=== PATIENT | female | born 1990 | race Caucasian/White ===

== ENCOUNTER 2020-04-15 21:39 | Inpatient (IN) | payer BC, OTHER ==
[2020-04-15 22:29] VITALS: BMI 52.3
[2020-04-15] MEDS ORDERED: hydrALAZINE 20 MG/ML VIAL SLOW IVP PRN ×2 (22:29→22:59)
[2020-04-15] MEDS ORDERED: Ondansetron PF 4 MG/2 ML Vial IVP PRN ×2 (22:59→23:08)
[2020-04-15] MEDS ORDERED: MORPHINE 5 MG/10 ML PF VIAL ONE (22:59)
[2020-04-15] MEDS ORDERED: Bicitra 30 ML UDCUP PO SCH (23:00)
[2020-04-15] MEDS ORDERED: Ketorolac Tromethamine 30 MG/ML VIAL ONE (23:00)
[2020-04-15] MEDS ORDERED: PHENYLEPHRINE-NS 100 MCG/ML 10 ML SYRINGE ONE ×2 (23:00→23:49)
[2020-04-15] MEDS ORDERED: Clindamycin/D5W 900 MG in Premix Bag 1 BAG IVPB SCH (23:00)
[2020-04-15] MEDS ORDERED: Oxytocin 10 UNITS/ML VIAL ONE (23:00)
[2020-04-15] MEDS ORDERED: Ondansetron PF 4 MG/2 ML Vial ONE (23:00)
[2020-04-15] MEDS ORDERED: EPHEDRINE 25 MG/5 ML SYRINGE ONE (23:00)
[2020-04-15] MEDS ORDERED: Lactated Ringer's 1,000 ML IV SCH (23:00)
[2020-04-15] MEDS ORDERED: Gentamicin 120 MG/100 ML BAG IVPB SCH (23:00)
[2020-04-15] MEDS ORDERED: Promethazine HCl 25 MG SUPP PR PRN (23:08)
[2020-04-15] MEDS ORDERED: Ondansetron HCl/PF 4 MG/2 ML Vial IVP PRN (23:08)
[2020-04-15] MEDS ORDERED: Naloxone HCl 0.4 mg/ml Vial IVP PRN ×2 (23:08)
[2020-04-15] MEDS ORDERED: diphenhydrAMINE 50 MG/ML VIAL IVP PRN (23:08)
[2020-04-15] MEDS ORDERED: Ketorolac Tromethamine 30 MG/ML VIAL IVP PRN (23:08)
[2020-04-15] MEDS ORDERED: Promethazine HCl 25 MG/ML VIAL IM PRN (23:08)
[2020-04-15] MEDS ORDERED: Naloxone HCl 0.4 mg/ml Vial IV PRN (23:08)
[2020-04-15 23:15] LABS: Hemoglobin 14.4 g/dL (12.0-16.0); Mean Corpuscular HGB CONC 34.2 g/dL (32.0-36.0); Mean Corpuscular Hemoglobin 31.8 pg (27.0-31.0); Mean Corpuscular Volume 93.1 fL (78.0-98.0); Platelet Count 205 thou/uL (130-400); Red Blood Cell (RBC) Count 4.51 mill/uL (4.20-5.40); White Blood Cell (WBC) Count 18.8 thou/uL (4.8-10.8)
[2020-04-15] MEDS ORDERED: Communication Order-Pharmacy FS SCH (23:15)
[2020-04-15 23:51] LABS: Syphilis Antibody Nonreactive (Nonreactive); Syphilis Antibody Index 0.07 S/CO (<1.00 Non-Reactive)
[2020-04-15 23:57] LABS: Actual Bicarbonate (HCO3a) 21.3 mEq/L (22-28); Base Excess (BEa) -8.2 mEq/L (-2.0 to +3.0)
[2020-04-15 23:59] LABS: Actual Bicarbonate (HCO3v) 21 mEq/L (22-28); Base Excess -6.4 mEq/L (-2.0 to +3.0)
[2020-04-16 00:01] LABS: pH (Cord, venous) 7.24 (7.32-7.43)
[2020-04-16] MEDS ORDERED: Ketamine 50 MG/ML (10ML VIAL) ONE (00:25)
[2020-04-16] MEDS ORDERED: Ondansetron PF 4 MG/2 ML Vial ONE (00:35)
[2020-04-16] MEDS ORDERED: Glycopyrrolate 0.2 MG/ML 5 ML SYRINGE ONE (00:36)
[2020-04-16] MEDS ORDERED: NS / Oxytocin 40 units/1000ml 1,000 ML ONE (01:14)
[2020-04-16] MEDS: Acetaminophen 650 MG Suppository PR SCH ×2 (01:51→05:05)
--- NOTE | 2020-04-16 01:54 | OP ---
DATE OF PROCEDURE: 04/15/2020 PREOPERATIVE DIAGNOSES: 1. Intrauterine at 37 weeks and a day. 2. No care. 3. Previous section x1. 4. Non-reassuring heart tones of unknown duration. 5. Spontaneous rupture of membranes. 6. Thick meconium. POSTOPERATIVE DIAGNOSES: 1. Intrauterine at 37 weeks and a day. 2. No care. 3. Previous section x1. 4. Non-reassuring heart tones of unknown duration. 5. Spontaneous rupture of membranes. 6. Thick meconium. PROCEDURE PERFORMED: Repeat low transverse section. SERVICE AND REPAIR SUPERVISOR: Eleuterio Dumont DO ANESTHESIA: Spinal. ESTIMATED BLOOD LOSS: 800 mL. QUANTITATIVE BLOOD LOSS: Unavailable at the time of dictation. FINDINGS: Female in vertex presentation surrounded with bright green thick meconium, delivered at 2335 hours on 04/15/2020. Apgars were 8 and 9, weight unavailable at time of dictation. DESCRIPTION OF PROCEDURE: Ms. Connie Whyte is a 29-year-old female who presented to Labor and Delivery with concerns of rupture of membranes. Upon presentation, the patient was noted to be grossly ruptured with thick meconium and a heart tracing immediately showed repetitive late decelerations with very minimal contractions. Preparations were quickly made to take the patient back to the operating room for a repeat . There she was given spinal anesthesia and placed in dorsal supine position with a leftward tilt. The patient was prepared and draped in normal sterile fashion. After testing the effectiveness of the spinal anesthesia and noted to be adequate, a Pfannenstiel skin incision was made and carried down to the level of fascia. Fascia was incised and extended laterally with Nixon scissors. Superiorly fascia was dissected off the underlying rectus muscles both bluntly and sharply until we were high enough to get access into the peritoneal cavity. The peritoneal cavity was noted to have some filmy adhesions between the uterus and the omentum and the anterior abdominal wall. These adhesions were easily taken down and the peritoneal defect was extended bluntly. The Francis O retractor was then inserted giving adequate exposure to the lower uterine segment. A hysterotomy was performed in the lower uterine segment in a transverse fashion. was delivered in vertex presentation to sterile field, immediately noted upon hysterotomy was a thick pea soup bright green colored meconium. Infant was bulb suctioned. Cord was clamped and the was handed off to the waiting attendants. Placenta was delivered spontaneously. It was noted to be darkly stained with meconium. The placenta was manually extracted. Inspection of the uterine cavity revealed a small amount remaining membrane that was removed. The hysterotomy was then closed with #1 Monocryl in a running locked fashion followed by a 2nd imbricating layer. Good hemostasis was noted and the peritoneal cavity was then irrigated and the hysterotomy was noted to have good hemostasis. The Francis O retractor was removed and the peritoneum was then closed with 2-0 chromic in a running fashion. The fascia was closed with 0 Vicryl in a running fashion. The subcutaneous fat was closed with 2-0 plain gut in 2 layers in a running fashion. The skin was closed with 4-0 Monocryl in a running fashion. At this point, the incision was then covered and the patient was taken to the recovery room in stable condition. Job ID: [id number]
--- NOTE | 2020-04-16 02:01 | HP ---
HISTORY OF PRESENT ILLNESS: Patient is a 29-year-old G2, P1 female, with an intrauterine stated at 37 weeks and a day with no care. Patient reports she has had one visit. Patient presented to Labor and Delivery with complaints of rupture of membranes. She denies uterine contractions or vaginal bleeding. She denies fever, headache, chest pain, or shortness of breath. She denies recent illness, nausea, vomiting, diarrhea, constipation, any new rashes, urinary urgency or frequency. PAST MEDICAL HISTORY: Negative. PAST SURGICAL HISTORY: One primary , tonsillectomy. ALLERGIES: AMOXICILLIN, UNKNOWN REACTION. MEDICATIONS: None. OB LABS: Unavailable. REVIEW OF SYSTEMS: Per HPI. PHYSICAL EXAMINATION: VITAL SIGNS: Blood pressure 122/90, respiratory rate of 18, pulse of 108, and temperature 99.0. GENERAL: She appears to be in no acute distress. She is alert and oriented, cooperative and pleasant to interact with. HEAD: Normocephalic and atraumatic. LUNGS: Clear to auscultation bilaterally. HEART: Has regular rate and rhythm. ABDOMEN: Gravid, soft, nontender. EXTREMITIES: Nontender and nonedematous. heart tracing upon placement shows a fetus with repetitive late decelerations coming down into the 140s and rising up into the 170s with some periods of marked variability, contractions about every 2 minutes, again unfelt by the patient. Upon identification patient was given 15 L of oxygen placed on her left lateral side, and placed IV for fluid bolusing to resuscitate this baby while preparations for emergency are being made. Of note, the ORs were no fully cleaned and prepped and supplies for sterile scrub were not readily available delaying the case some. Appropriate staff were notified and once Anesthesia saw the patient, the patient was ready for the OR, she was transferred there. ASSESSMENT AND PLAN: Patient is a 29-year-old female, with an intrauterine stated at 37 weeks, presenting for rupture of membranes and being assessed of having a category III tracing with repetitive late decelerations of unknown duration and bright green meconium. Patient proceeded urgently towards . Please refer to the operative note for complete details. Job ID: [id number] MTDD
[2020-04-16 02:05] LABS: HBSAg Index 0.16 S/CO (0-0.99); HIV (1/2) Antibody/Antigen Non-Reactive (NonReactive); Hep B Surf Ag Non-Reactive S/CO (NonReactive)
[2020-04-16 02:44] LABS: Amphetamine Detected (NotDetected); Barbiturates Screen Not Detected (NotDetected); Benzodiazepine Screen Not Detected (NotDetected); Cocaine Metabolite Screen Not Detected (NotDetected); Medtox Control Line Valid? VALID (VALID); Medtox Reader # READER 4; Methadone Not Detected (NotDetected); Methamphetamine Detected (NotDetected); Opiate Screen Not Detected (NotDetected); Oxycodone Screen Not Detected (NotDetected); Phencyclidine (PCP) Not Detected (NotDetected); THC/Cannabinoid Screen Not Detected (NotDetected); Tricyclic Screen Not Detected (NotDetected)
[2020-04-16] MEDS ORDERED: Simethicone Chewable 80 MG TAB PO PRN (04:21)
[2020-04-16] MEDS ORDERED: Ondansetron PF 4 MG/2 ML Vial IVP PRN (04:21)
[2020-04-16] MEDS ORDERED: Lanolin Ointment 7 GM TUBE TOP PRN (04:21)
[2020-04-16] MEDS ORDERED: Methylergonovine 0.2 MG TAB PO PRN (04:21)
[2020-04-16] MEDS ORDERED: diphenhydrAMINE 25 MG CAP PO PRN (04:21)
[2020-04-16] MEDS ORDERED: Promethazine HCl 25 MG/ML VIAL IM PRN ×2 (04:21→06:39)
[2020-04-16] MEDS ORDERED: Methylergonovine 0.2 MG/ML VIAL IM PRN (04:21)
[2020-04-16] MEDS ORDERED: Misoprostol 200 MCG TAB PR PRN (04:21)
[2020-04-16] MEDS ORDERED: hydrALAZINE 20 MG/ML VIAL SLOW IVP PRN (04:21)
[2020-04-16] MEDS ORDERED: Acetaminophen 325 MG TAB PO PRN (04:21)
[2020-04-16] MEDS ORDERED: NS / Oxytocin 40 units/1000ml 1,000 ML IV SCH (04:21)
[2020-04-16] MEDS ORDERED: Promethazine HCl 25 MG/ML VIAL SLOW IVP PRN (06:39)
--- NOTE | 2020-04-16 07:19 | PRG ---
DATE OF SERVICE: 04/16/2020 postoperative note SUBJECTIVE: The patient is postop day 1, status post a repeat lower transverse section done urgently for non-reassuring heart tones upon presentation and spontaneous rupture of membranes with thick meconium and history of previous x1. Today, the patient reports she is tolerating liquids, having good pain control. Fitzpatrick catheter still in place. OBJECTIVE: VITAL SIGNS: This morning, blood pressure 119/67, temperature 98.7, pulse of 86, respiratory rate of 16. GENERAL: She appears to be in no acute distress. She is alert, oriented, cooperative, pleasant to interact with. HEENT: Head is normocephalic, atraumatic. ABDOMEN: Incision is clean. It is bandaged and is clean. EXTREMITIES: Nontender, nonedematous. Drug screen is positive for methamphetamines. RPR, hep B, and HIV are all negative. GBS and rubella are pending. Of note, blood gas 7.15, base excess of -8. ASSESSMENT AND PLAN: The patient is a 29-year-old female, postop day 1, status post a repeat for non-reassuring heart tones upon presentation, category three. She has a screen positive for methamphetamines for which she denies, but does state that she is around people that she knows does methamphetamines. Anticipate CPS involvement and testing of the baby. The patient has been made aware. We will continue in-house care with discharge in the next 2-3 days. Job ID: [id number]
[2020-04-16] MEDS ORDERED: Adacel (T-DAP) 0.5 ML SYRINGE IM ONE (09:00)
[2020-04-16] MEDS: Docusate Calcium (SURFAK) 240 MG CAP PO SCH ×2 (09:12→21:19)
[2020-04-16] MEDS: Prenatal Vitamin 1 TAB PO SCH (09:12)
[2020-04-16] MEDS ORDERED: HYDROcodone/Acetaminophen 5/325 mg Tablet PO PRN ×2 (11:15)
[2020-04-16 14:55] LABS: SARS-CoV-2 MS2 Positive; SARS-CoV-2 N Gene Negative; SARS-CoV-2 S Gene Negative; SARS-CoV-2 by NAA Not Detected (NotDetected); SARS-CoV-2 orf1ab Negative
[2020-04-16] MEDS ORDERED: Sodium Chloride 0.9% 10 ML ONE (14:59)
[2020-04-16] MEDS: Ibuprofen 800 MG TAB PO SCH (21:19)
[2020-04-16 23:54] VITALS: TEMP 98.1
[2020-04-17] MEDS: Ibuprofen 800 MG TAB PO SCH ×2 (05:24→14:28)
[2020-04-17 05:51] LABS: Hemoglobin 10.5 g/dL (12.0-16.0); Mean Corpuscular HGB CONC 33.2 g/dL (32.0-36.0); Mean Corpuscular Hemoglobin 31.4 pg (27.0-31.0); Mean Corpuscular Volume 94.7 fL (78.0-98.0); Mean Platelet Volume 7.3 fL (7.4-10.4); Platelet Count 200 thou/uL (130-400); RBC Distribution Width 12.1 % (11.5-14.5); Red Blood Cell (RBC) Count 3.33 mill/uL (4.20-5.40); White Blood Cell (WBC) Count 13.6 thou/uL (4.8-10.8)
[2020-04-17] MEDS ORDERED: Ibuprofen 800 MG TAB PO SCH (06:00)
--- NOTE | 2020-04-17 06:05 | PDOC.PP ---
Post Progress Note Post Day #: 2 Subjective: Doing well PO intake tolerated: yes Flatus: yes Ambulation: yes Vital Signs (12 hours) Temp Pulse Resp BP 04/17/20 05:20 98.1 F 75 16 122/73 04/16/20 23:45 98.1 F 72 16 106/65 04/16/20 21:20 98.2 F 89 16 138/72 Weight Weight 334 lb - Physical Examination General: NAD Respiratory: non-labored breathing Abdominal: no distention, appropriately TTP Extremities: negative homans (B) Skin: CS incision dry & intact (sutured), no rash Neurological: no gross focal deficits Psychiatric: A&Ox3, normal affect Result Diagrams: 04/17/20 05:34 Additional Labs: Post Labs Blood Type A POSITIVE 04/16/20 05:10 Hep Bs Antigen Non-Reactive S/CO (NonReactive) 04/15/20 23:03 (1) delivery delivered Code(s): O82 - ENCOUNTER FOR DELIVERY WITHOUT INDICATION Status: Acute (2) Methamphetamine use Code(s): F15.10 - OTHER STIMULANT ABUSE, UNCOMPLICATED Status: Acute - Assessment/Plan No care, now POD 2 from repeat CS. CPS to see today per protocol for pos UDS for meth and amphetamines. Otherwise well. Plan on DC home tomorrow
[2020-04-17] MEDS: Prenatal Vitamin 1 TAB PO SCH (08:26)
[2020-04-17] MEDS: Docusate Calcium (SURFAK) 240 MG CAP PO SCH (08:26)
[2020-04-17 11:49] VITALS: BP 123/67
== END 2020-04-17 16:00 | disposition home or self-care (01) | DRG 787 ==
LOC: L&D/OP 21:39 → L&D 23:02 → 3SW 04-16 03:41
PROVIDERS: ADMIT Obstetrics & Gynecology; ATTEND Obstetrics & Gynecology
PROC: 10D00Z1 Extraction of Products of Conception, Low, Open Approach (ICD-10-PCS; principal; 2020-04-15)
DX: O76 Abnormality in fetal heart rate and rhythm complicating labor and delivery (principal); O99.324 Drug use complicating childbirth; Z3A.37 37 weeks gestation of pregnancy; Z37.0 Single live birth; O34.211 Maternal care for low transverse scar from previous cesarean delivery; O77.0 Labor and delivery complicated by meconium in amniotic fluid; Z20.828 Contact with and (suspected) exposure to other viral communicable diseases; F15.90 Other stimulant use, unspecified, uncomplicated
CPT/HCPCS: 36415; 51702; 80306; 82805; 85027; 86762; 86780; 86850; 86870; 86900; 86901; 86905; 86922; 87340; 87389; 87635; 88307; 99285; J0690; J1580; J1885; J2274; J2405; J2590; J3490; U0003

== ENCOUNTER 2023-07-31 11:50 | Inpatient (IN) | payer BC, SELFPAY ==
[2023-07-31 13:27] LABS: #Monocytes 2.3 thou/uL (0.11-0.59); #Neutrophils 15.5 thou/uL (1.40-6.50); %Basophils 0.2 % (0.0-1.0); %Lymphocytes 6.4 % (21.0-51.0); %Monocytes 11.7 % (0.0-10.0); %Neutrophils 81.1 % (42.0-75.0); Hematocrit 42.3 % (36.0-47.0); Hemoglobin 14.2 g/dL (12.0-16.0); Mean Corpuscular HGB CONC 33.6 g/dL (32.0-36.0); Mean Corpuscular Hemoglobin 30.8 pg (27.0-31.0); Mean Corpuscular Volume 91.8 fl (78.0-98.0); Platelet Count 204 10x3/uL (130-400); RBC Distribution Width 11.9 % (11.5-14.5); Red Blood Cell (RBC) Count 4.61 mill/uL (4.20-5.40); White Blood Cell (WBC) Count 19.2 10x3/uL (4.8-10.8)
[2023-07-31] MEDS ORDERED: Ondansetron PF 4 MG/2 ML Vial ONE (13:32)
[2023-07-31] MEDS ORDERED: Ketorolac Tromethamine 30 MG/ML VIAL ONE (13:32)
[2023-07-31 13:40] LABS: BHCG - Serum Negative (NEGATIVE); Pregs Control Background? CLEAR/WHITE (CLR/WHITE); Pregs Control Bar Appear? YES (CONTROL BAR)
[2023-07-31 13:58] LABS: ALT (SGPT) 22 U/L (8-55); AST (SGOT) 26 U/L (5-34); Albumin 3.8 g/dL (3.5-5.0); Alkaline Phosphatase 88 U/L (40-110); Anion Gap 15 mmol/L (10-20); BUN (Urea Nitrogen) 7 mg/dL (7.0-18.7); Bilirubin, Total 0.9 mg/dL (0.2-1.2); Calc. Creatinine Clearance 0 mL/min (70-130); Calcium 9.8 mg/dL (7.8-10.44); Carbon Dioxide 23 mmol/L (22-29); Chloride 97 mmol/L (98-107); Estimated GFR 67; Globulin 4.7 g/dL (2.4-3.5); Lipase Less than 4 U/L (8-78); Potassium 3.7 mmol/L (3.5-5.1); Protein, Total 8.5 g/dL (6.0-8.3); Sodium 131 mmol/L (136-145)
[2023-07-31 13:59] LABS: Troponin I Less than 0.010 ng/mL (< 0.028)
[2023-07-31 14:00] LABS: Glucose 101 mg/dL (70-105)
[2023-07-31 15:32] LABS: Bacteria/HPF 4+ HPF (None Seen); Bilirubin Negative (Negative); Blood, Urine 1+ (Negative); CAUTI Indications for Culture Fever or rigors; Clarity Turbid (Clear); Glucose, Urine (Dipstick) Normal (Negative); Ketone, Urine Negative (Negative); Leukocyte 500 Leu/uL (Negative); Nitrite 2+ (Negative); Protein, Urine (Dipstick) 50 mg/dL (Neg-Trace); Specific Gravity, Urine 1.017 (1.002-1.036); Squamous Epithelial 0-3 HPF (0-3); WBC/HPF Greater than 50 HPF (0-3)
[2023-07-31 15:36] LABS: Urine Culture Reflex Yes Yes
[2023-07-31] MEDS ORDERED: Ondansetron PF 4 MG/2 ML Vial IVP PRN (17:03)
[2023-07-31] MEDS ORDERED: Ondansetron ODT 4 MG TAB PO PRN (17:03)
[2023-07-31] MEDS ORDERED: diphenhydrAMINE 12.5 MG/5 ML UDCUP PO PRN (17:08)
[2023-07-31] MEDS ORDERED: cefTRIAXone (ROCEPHIN) 2 GM VIAL ONE (17:22)
[2023-07-31] MEDS ORDERED: Sodium Chloride 0.9% 100 ML ONE (17:22)
[2023-07-31] MEDS: cefTRIAXone\\ROCEPHIN 2 GM in Sodium Chloride 0.9% 100 ML IVPB SCH (17:27)
[2023-07-31] MEDS ORDERED: HYDROcodone/Acetaminophen 5/325 mg Tablet ONE (20:20)
[2023-07-31] MEDS: HYDROcodone/Acetaminophen 5/325 mg Tablet PO PRN (20:21)
[2023-07-31] MEDS: Saccharomyces boulardii 250 MG CAP PO SCH (21:22)
[2023-07-31] MEDS: Nicotine 14 MG PATCH TD SCH (21:42)
[2023-07-31] MEDS: Sodium Chloride 0.9% 1,000 ML IV SCH (23:43)
[2023-08-01] MEDS ORDERED: HYDROcodone/Acetaminophen 5/325 mg Tablet ONE ×2 (01:34→09:03)
[2023-08-01] MEDS: HYDROcodone/Acetaminophen 5/325 mg Tablet PO PRN ×3 (01:36→16:32)
[2023-08-01 03:42] LABS: #Monocytes 3.1 thou/uL (0.11-0.59); #Neutrophils 11.4 thou/uL (1.40-6.50); %Basophils 0.2 % (0.0-1.0); %Eosinophils 0.1 % (0.0-10.0); %Lymphocytes 12.6 % (21.0-51.0); %Monocytes 18.4 % (0.0-10.0); Hematocrit 33.4 % (36.0-47.0); Mean Corpuscular HGB CONC 33.5 g/dL (32.0-36.0); Mean Corpuscular Hemoglobin 30.2 pg (27.0-31.0); Mean Platelet Volume 9.3 fL (7.4-10.4); Platelet Count 161 10x3/uL (130-400); RBC Distribution Width 11.9 % (11.5-14.5); Red Blood Cell (RBC) Count 3.71 mill/uL (4.20-5.40); White Blood Cell (WBC) Count 16.8 10x3/uL (4.8-10.8)
[2023-08-01 03:50] LABS: Hemoglobin 11.2 g/dL (12.0-16.0)
[2023-08-01 04:10] LABS: Anion Gap 14 mmol/L (10-20); BUN (Urea Nitrogen) 8 mg/dL (7.0-18.7); Calc. Creatinine Clearance 0 mL/min (70-130); Calcium 8.4 mg/dL (7.8-10.44); Carbon Dioxide 21 mmol/L (22-29); Chloride 101 mmol/L (98-107); Estimated GFR 67; Glucose 105 mg/dL (70-105); Potassium 3.5 mmol/L (3.5-5.1); Sodium 132 mmol/L (136-145)
[2023-08-01] MEDS ORDERED: Ondansetron ODT 4 MG TAB ONE (09:59)
[2023-08-01 10:45] VITALS: BMI 49.4
[2023-08-01] MEDS: Sodium Chloride 0.9% 1,000 ML IV SCH ×4 (12:13→21:21)
[2023-08-01 12:46] LABS: Chlam.trachomatis by PCR,Urine Not Detected (NotDetected); GC N.gonorrhoeae PCR,UrineVOID Not Detected (NotDetected)
[2023-08-01] MEDS: cefTRIAXone\\ROCEPHIN 2 GM in Sodium Chloride 0.9% 100 ML IVPB SCH (16:24)
[2023-08-01] MEDS ORDERED: LevoFLOXacin 500 mg/D5W 500 MG in Premix 1 BAG IVPB SCH (16:45)
[2023-08-01] MEDS: Nicotine 14 MG PATCH TD SCH (16:50)
[2023-08-01] MEDS ORDERED: Potassium Chloride 20 MEQ TAB PO SCH (17:00)
[2023-08-01] MEDS ORDERED: FLU VACC QS2023-24(6MOS UP)/PF 60 MCG/0.5 ML SYRINGE IM ONE (18:00)
[2023-08-01] MEDS: Saccharomyces boulardii 250 MG CAP PO SCH (21:15)
[2023-08-02] MEDS: HYDROcodone/Acetaminophen 5/325 mg Tablet PO PRN (01:45)
[2023-08-02] MEDS: Sodium Chloride 0.9% 1,000 ML IV SCH ×2 (01:45→10:18)
[2023-08-02 04:24] LABS: #Eosinphils 0.1 thou/uL (0.0-0.7); #Monocytes 1.4 thou/uL (0.11-0.59); #Neutrophils 7.9 thou/uL (1.40-6.50); %Basophils 0.3 % (0.0-1.0); %Eosinophils 0.4 % (0.0-10.0); %Lymphocytes 18.8 % (21.0-51.0); %Monocytes 11.9 % (0.0-10.0); Hematocrit 32.6 % (36.0-47.0); Hemoglobin 10.8 g/dL (12.0-16.0); Mean Corpuscular HGB CONC 33.1 g/dL (32.0-36.0); Mean Corpuscular Hemoglobin 30.4 pg (27.0-31.0); Mean Corpuscular Volume 91.8 fl (78.0-98.0); Platelet Count 187 10x3/uL (130-400); RBC Distribution Width 12.2 % (11.5-14.5); Red Blood Cell (RBC) Count 3.55 mill/uL (4.20-5.40); White Blood Cell (WBC) Count 11.6 10x3/uL (4.8-10.8)
[2023-08-02 04:55] LABS: Anion Gap 11 mmol/L (10-20); BUN (Urea Nitrogen) 8 mg/dL (7.0-18.7); Calc. Creatinine Clearance 222 mL/min (70-130); Calcium 8.6 mg/dL (7.8-10.44); Carbon Dioxide 22 mmol/L (22-29); Chloride 105 mmol/L (98-107); Estimated GFR 97; Glucose 93 mg/dL (70-105); Potassium 3.9 mmol/L (3.5-5.1); Sodium 134 mmol/L (136-145)
[2023-08-02 07:58] VITALS: BP 114/60; TEMP 97.9
== END 2023-08-02 10:40 | disposition home or self-care (01) | DRG 872 ==
LOC: ERS 11:50 → 2NO 16:30 → ERHOLD 16:38 → 2NO 08-01 10:20
PROVIDERS: ADMIT Internal Medicine; ATTEND Internal Medicine
DX: A41.51 Sepsis due to Escherichia coli [E. coli] (principal); N10 Acute pyelonephritis; Z68.42 Body mass index [BMI] 45.0-49.9, adult; N17.9 Acute kidney failure, unspecified; F17.210 Nicotine dependence, cigarettes, uncomplicated; E66.01 Morbid (severe) obesity due to excess calories; E86.0 Dehydration; Z90.49 Acquired absence of other specified parts of digestive tract; Z88.1 Allergy status to other antibiotic agents; Z98.890 Other specified postprocedural states; Z79.899 Other long term (current) drug therapy
CPT/HCPCS: 36415; 71045; 76770; 80048; 80053; 81001; 83605; 83690; 84484; 84703; 85025; 87040; 87077; 87086; 87186; 87491; 87591; 93005; J0696; J1885; J1956; J2405; J3490; J7050; Q0162